=== PATIENT | female | born 1950 | race Two or more races ===

== ENCOUNTER 2022-07-19 12:02 | Outpatient (CLI) | payer OTHER ==
[~2022-07-19 12:02] MED LIST: ORPH100T PO; TRAMADOL HCL-AP1 TAB PO; ULTRAM ER100 MG PO
== END 2022-07-19 12:05 | disposition home or self-care (01) ==
LOC: RAD 12:02
PROVIDERS: ATTEND Internal Medicine Pulmonary Disease
DX: J43.2 Centrilobular emphysema (principal)

== ENCOUNTER → 2022-07-21 | Outpatient (CLI) | payer OTHER | END | disposition home or self-care (01) | LOC: SONOGRAMA 09:47 | PROVIDERS: ATTEND Specialist/Technologist, Other Nephrology | DX: R10.9 Unspecified abdominal pain (principal); N18.30 Chronic kidney disease, stage 3 unspecified; R31.9 Hematuria, unspecified ==

== ENCOUNTER 2022-07-29 09:48 | Outpatient (CLI) | payer OTHER | END 2022-07-29 09:53 | disposition home or self-care (01) | LOC: TOM 09:48 | PROVIDERS: ATTEND Internal Medicine Pulmonary Disease | DX: R06.02 Shortness of breath (principal); Z87.891 Personal history of nicotine dependence; E66.01 Morbid (severe) obesity due to excess calories ==

== ENCOUNTER 2023-02-24 08:21 | Outpatient (CLI) | payer OTHER | END 2023-02-24 08:30 | disposition home or self-care (01) | LOC: RAD 08:21 | PROVIDERS: ATTEND Urology | DX: N20.0 Calculus of kidney (principal) ==